=== PATIENT | female | born 1955 | race African-American/Black ===

== ENCOUNTER 2017-04-18 13:20 | Observation (INO) | payer OTHER ==
[~2017-04-18] VITALS: Ht 167.6 cm; Wt 102.5 kg
[2017-04-18 15:10] LABS: BASOPHILS % 0.6 % (0.0-2.0); EOSINOPHILS % 0.7 % (0.0-5.0); HEMOGLOBIN. 14.2 g/dL (12.0-16.0); LYMPHOCYTES % 15.7 % (20.0-50.0); MEAN CORPUSCULAR HEMOGLOBIN 30.4 pg (28.0-32.0); MEAN PLATELET VOLUME 8.3 fl (7.4-10.4); MONOCYTES % 4.1 % (2.0-8.0); NEUTROPHILS % 78.9 % (40.0-76.0); PLATELET 344 x1000/uL (130-400); RED BLOOD CELL COUNT 4.68 mill/uL (4.2-5.4); RED CELL DISTRIBUTION WIDTH 14.5 % (11.6-14.6)
[2017-04-18 15:16] LABS: BG BASE EXCESS -6.4 mmol/L (-2.0-2.0); BG CARBOXYHEMOGLOBIN 0.7 % (0.5-1.5); BG DEOXYHEMOGLOBIN 3.1 % (0.0-5.0); BG FRACTION INSPIRED OXYGEN 21; BG METHEMOGLOBIN 0.1 % (0.0-1.5); BG OXYGEN SATURATION 96.9 % (92.0-98.5); BG OXYHEMOGLOBIN 96.1 % (94.0-97.0); BG PCO2 21.4 mmHg (35.0-45.0); BG PH 7.463 (7.350-7.450); BG PO2 90.3 mmHg (75.0-100.0); BG SAMPLE SITE RIGHT BRACHIAL; BG TOTAL HEMOGLOBIN 14.4 g/dL (12.0-18.0); BG VENT MODE ROOM AIR
[2017-04-18 15:21] LABS: CARBON DIOXIDE 19 mEq/L (21-32); CHLORIDE 114 mEq/L (98-107)
[2017-04-18 15:25] LABS: ETHANOL BLOOD < 10 mg/dL
[2017-04-18 15:27] LABS: TROPONIN I < 0.02 ng/mL (0.00-0.04)
[2017-04-18] MEDS ORDERED: LORAZEPAM 2MG/ML CPJ IV ONE (15:30)
[2017-04-18] MEDS ORDERED: ONDANSETRON HCL 4MG/2ML VIAL IV ONE (16:45)
[2017-04-18] MEDS ORDERED: KETOROLAC 30MG/ML VIAL IV ONE (16:45)
[2017-04-18] MEDS ORDERED: ACETAMINOPHEN 325MG TABLET PO ONE (18:00)
[2017-04-19] VITALS (8 sets, daily range): BP systolic 101–119; BP diastolic 59–76
[2017-04-19] MEDS ORDERED: ATEN-42 PO (01:31)
[2017-04-19] MEDS ORDERED: HYDR-2510 PO (01:31)
[2017-04-19] MEDS ORDERED: ACET-3161 PO (01:31)
[2017-04-19] MEDS ORDERED: HYDROCODONE/ACETAMINOPHEN 5/325MG TABLET PO PRN (01:45)
[2017-04-19] MEDS ORDERED: ACETAMINOPHEN 325MG TABLET PO PRN (01:45)
[2017-04-19 06:37] LABS: BASOPHILS % 0.5 % (0.0-2.0); EOSINOPHILS % 1.1 % (0.0-5.0); HEMATOCRIT. 40.8 % (36.0-48.0); HEMOGLOBIN. 13.6 g/dL (12.0-16.0); LYMPHOCYTES % 29.6 % (20.0-50.0); MEAN CORPUSCULAR HEMOGLOBIN 30.9 pg (28.0-32.0); MEAN CORPUSCULAR VOLUME 92.3 fL (81.0-99.0); MEAN PLATELET VOLUME 8.4 fl (7.4-10.4); MONOCYTES % 5.9 % (2.0-8.0); NEUTROPHILS % 62.9 % (40.0-76.0); PLATELET 333 x1000/uL (130-400); RED BLOOD CELL COUNT 4.42 mill/uL (4.2-5.4); RED CELL DISTRIBUTION WIDTH 14.4 % (11.6-14.6)
[2017-04-19] MEDS ORDERED: ATENOLOL 25MG TABLET PO SCH (09:00)
[2017-04-19] MEDS ORDERED: HYDROCHLOROTHIAZIDE 50MG TABLET PO SCH (09:00)
[2017-04-19] MEDS ORDERED: INSULIN LISPRO 100 UNITS/ML SUBCUT NR (22:15)
== END 2017-04-19 22:30 | disposition short-term general hospital (02) ==
LOC: ER 13:35 → INTOOBSV 16:57 → 7WST 16:57
PROVIDERS: ADMIT Hospitalist; ATTEND Hospitalist
DX: I95.9 Hypotension, unspecified (principal); E11.9 Type 2 diabetes mellitus without complications; I10 Essential (primary) hypertension; F41.9 Anxiety disorder, unspecified; R19.7 Diarrhea, unspecified; N17.9 Acute kidney failure, unspecified
CPT/HCPCS: 36415; 36600; 70450; 71010; 80048; 80053; 82375; 82805; 82962; 84484; 85025; 96372; 96374; 96375; 99285; G0378; G0482; J1815; J1885; J2060; J2405

== ENCOUNTER 2023-06-24 07:10 | Emergency (ER) | payer OTHER ==
[~2023-06-24] VITALS: Ht 165.1 cm; Wt 114.0 kg
[~2023-06-24 07:10] MED LIST: ACET-3161 PO; ATEN-42 PO; HYDR50TA PO
[2023-06-24 07:21] VITALS: O2SAT 100
[2023-06-24] MEDS ORDERED: MAGNESIUM/ALUMINUM HYDROXIDE/SIMETHICONE 30ML UDC PO ONE (07:30)
[2023-06-24] MEDS ORDERED: METOCLOPRAMIDE HCL 5MG TABLET PO ONE (09:45)
[2023-06-24] MEDS ORDERED: LORAZEPAM 0.5MG TABLET PO ONE (09:45)
[2023-06-24] MEDS ORDERED: ATENOLOL 50 MG TABLET PO ONE (09:45)
[2023-06-24] MEDS ORDERED: ACETAMINOPHEN 325MG TABLET PO ONE (09:45)
[2023-06-24 11:51] LABS: BASOPHILS % 0.5 % (0.0-2.0); EOSINOPHILS % 1.5 % (0.0-5.0); HEMATOCRIT. 42.6 % (36.0-48.0); HEMOGLOBIN. 14.3 g/dL (12.0-16.0); LYMPHOCYTES % 24.8 % (20.0-50.0); MEAN CORPUSCULAR HEMOGLOBIN 32.1 pg (28.0-32.0); MEAN CORPUSCULAR VOLUME 95.9 fL (81.0-99.0); MEAN PLATELET VOLUME 8.6 fl (7.4-10.4); MONOCYTES % 6.6 % (2.0-8.0); NEUTROPHILS % 66.6 % (40.0-76.0); PLATELET 248 x1000/uL (130-400); RED BLOOD CELL COUNT 4.45 mill/uL (4.2-5.4); RED CELL DISTRIBUTION WIDTH 15.2 % (11.6-14.6)
[2023-06-24 12:00] LABS: CHLORIDE 116 mEq/L (98-107)
[2023-06-24 12:07] LABS: ETHANOL BLOOD < 10 mg/dL (-10)
[2023-06-24] MEDS ORDERED: PANTOPRAZOLE SODIUM 40 MG/VIAL IV NR (13:00)
[2023-06-24] MEDS ORDERED: SODIUM CHLORIDE 0.9% 1,000 ML IV NR ×2 (13:00)
[2023-06-24] MEDS ORDERED: HYDRALAZINE 20MG/ML VIAL IV NR (15:15)
[2023-06-24] MEDS ORDERED: MORPHINE SULFATE 4 MG/ML CPJ (NOT FOR IM USE) IV NR (15:15)
[2023-06-24 19:33] VITALS: BP 154/87; PULSE 90; RESP 20; TEMP 97.6
[2023-06-25] MEDS ORDERED: DEXTROSE 50% WATER 50ML SYRINGE IV PRN (11:00)
[2023-06-25] MEDS ORDERED: IPRATROPIUM/ALBUTEROL 0.5-3(2.5)MG/3ML NEB HHN PRN (11:00)
[2023-06-25] MEDS ORDERED: DIPHENHYDRAMINE 50MG/ML VIAL IV PRN (11:00)
[2023-06-25] MEDS ORDERED: CLONIDINE 0.1MG TABLET PO PRN (11:00)
[2023-06-25] MEDS ORDERED: ACETAMINOPHEN 325MG TABLET PO PRN ×2 (11:00)
[2023-06-25] MEDS ORDERED: ONDANSETRON HCL 4MG/2ML INJ IV PRN (11:00)
[2023-06-25] MEDS ORDERED: DOCUSATE SODIUM 100MG CAPSULE PO PRN (11:00)
[2023-06-25] MEDS ORDERED: AMLODIPINE 5MG TABLET PO SCH (11:23)
[2023-06-25] MEDS ORDERED: SODIUM CHLORIDE 0.9% 1,000 ML IV SCH (11:24)
[2023-06-25] MEDS ORDERED: METHYLPREDNISOLONE SOD SUCC 40MG/ML (ACT-O-VIAL) IV NR (11:30)
[2023-06-25] MEDS ORDERED: BLOOD SUGAR DIAGNOSTIC STRIP TEST SCH (13:00)
[2023-06-25] MEDS ORDERED: INSULIN LISPRO 100 UNITS/ML SUBCUT SCH (13:20)
[2023-06-25] MEDS ORDERED: FAMOTIDINE 20MG/2ML VIAL IV SCH (21:00)
[2023-06-25] MEDS ORDERED: METHYLPREDNISOLONE SOD SUCC 40MG VIAL IV SCH (21:00)
== END 2023-06-24 19:55 | disposition short-term general hospital (02) ==
LOC: ER 07:26 → EDBEDREQ 17:34 → EDBEDREQTM 17:34 → EDBEDREQSVC 17:34 → CANBEDREQ 18:26 → ER 19:55
DX: R10.13 Epigastric pain (principal); E87.20 Acidosis, unspecified; I10 Essential (primary) hypertension; F41.9 Anxiety disorder, unspecified; E11.9 Type 2 diabetes mellitus without complications; Z88.0 Allergy status to penicillin; Z20.822 Contact with and (suspected) exposure to COVID-19
CPT/HCPCS: 80053; 80320; 82962; 83880; 83605; 83690; 85025; 84484; 36415; 71045; 74176; 93005; 96374; 96375; 99285; 87426; J8597; J0360; C9113; J2270; C9803; Z7610 ×3; C1893; G0480

== ENCOUNTER 2024-11-05 16:41 | Inpatient (IN) | payer OTHER, MEDICARE ==
[~2024-11-05] VITALS: Ht 167.6 cm; Wt 112.0 kg
[2024-11-05 20:44] LABS: CHLORIDE 96 mEq/L (98-107); POTASSIUM 4.3 mEq/L (3.5-5.1); SODIUM 127 mEq/L (136-145)
[2024-11-05 20:45] LABS: CALCIUM 9.6 mg/dL (8.7-10.4); CARBON DIOXIDE 17 mEq/L (21-32)
[2024-11-05 20:49] LABS: UREA NITROGEN BLOOD 11 mg/dL (9-23)
[2024-11-05 20:50] LABS: CREATININE 1.5 mg/dL (0.6-1.0); TROPONIN I HIGH SENSITIVITY 32 ng/L (3.0-34)
[2024-11-05 20:52] LABS: ACETAMINOPHEN 12 ug/mL (10-30); ALANINE AMINOTRANSFERASE 16 IU/L (10-49); ALBUMIN 4.4 g/dL (3.2-4.8); ASPARTATE AMINOTRANSFERASE 21 IU/L (<34); BILIRUBIN DIRECT 0.2 mg/dL (<=3.0); BILIRUBIN TOTAL 0.8 mg/dL (0.1-1.0); PROTEIN TOTAL 7.9 g/dL (6.0-8.3)
[2024-11-05 20:56] LABS: ETHANOL BLOOD < 10 mg/dL (<10)
[2024-11-05 21:05] LABS: GLUCOSE 603 mg/dL (70-105)
[2024-11-05] MEDS ORDERED: INSULIN REGULAR (HUMULIN R) 1000UNITS/10ML VIAL IV ONE (21:30)
[2024-11-05] MEDS ORDERED: POTASSIUM CHLORIDE 40 MEQ in SODIUM CHLORIDE 0.9% 230 ML IV PRN ×2 (21:30→23:45)
[2024-11-05] MEDS ORDERED: INSULIN REGULAR (DRIP) 100 UNITS in SODIUM CHLORIDE 0.9% 99 ML IV SCH (21:30)
[2024-11-05] MEDS ORDERED: BLOOD SUGAR DIAGNOSTIC STRIP TEST PRN ×2 (21:30→23:45)
[2024-11-05] MEDS: INSULIN REGULAR (HUMULIN R) 1000UNITS/10ML VIAL IV NR (21:30)
[2024-11-05] MEDS ORDERED: MAGNESIUM 2 G PREMIX 50 ML IV PRN ×2 (21:30→23:45)
[2024-11-05] MEDS ORDERED: DEXTROSE 50% WATER 50ML SYRINGE IV PRN (21:30)
[2024-11-05] MEDS ORDERED: DEXT 5%/0.9% NACL 1,000 ML IV SCH (21:30)
[2024-11-05] MEDS ORDERED: KCL 20MEQ/100ML PREMIX 100 ML IV PRN ×2 (21:30→23:45)
[2024-11-05] MEDS: BLOOD SUGAR DIAGNOSTIC STRIP TEST SCH ×2 (21:30→23:45)
[2024-11-05] MEDS ORDERED: SODIUM PHOSPHATE 15 MMOL in SODIUM CHLORIDE 0.9% 245 ML IV PRN ×2 (21:30→23:45)
[2024-11-05] MEDS: SODIUM CHLORIDE 0.9% 1,000 ML IV SCH (21:30)
[2024-11-05] MEDS ORDERED: INSULIN REGULAR 100U/100ML PMX 100 ML IV SCH (22:00)
[2024-11-05] MEDS ORDERED: HYDRALAZINE 20MG/ML VIAL IV PRN (23:45)
[2024-11-05] MEDS ORDERED: SODIUM CHLORIDE 0.9% 1,000 ML IV PRN (23:45)
[2024-11-06 00:23] LABS: CHLORIDE 92 mEq/L (98-107); POTASSIUM 5.1 mEq/L (3.5-5.1); SODIUM 128 mEq/L (136-145)
[2024-11-06 00:24] LABS: CARBON DIOXIDE 21 mEq/L (21-32)
[2024-11-06 00:29] LABS: CREATININE 1.9 mg/dL (0.6-1.0); UREA NITROGEN BLOOD 17 mg/dL (9-23)
[2024-11-06 00:42] LABS: GLUCOSE 722 mg/dL (70-105)
[2024-11-06 00:45] LABS: BG BASE EXCESS -6.7 mmol/L (-2.0-3.0); BG CARBOXYHEMOGLOBIN 0.5 % (0.5-1.5); BG DEOXYHEMOGLOBIN 2.4 % (0.0-5.0); BG FRACTION INSPIRED OXYGEN 21; BG HCO3 ACT 15.6 mmol/L (21.0-28.0); BG METHEMOGLOBIN 0.3 % (0.5-1.5); BG OXYGEN SATURATION 97.6 % (94.0-98.0); BG OXYHEMOGLOBIN 96.8 % (94.0-98.0); BG PCO2 24.1 mmHg (32.0-45.0); BG PH 7.428 (7.350-7.450); BG PO2 92.4 mmHg (83.0-108.0); BG SAMPLE SITE LEFT RADIAL; BG VENT MODE ROOM AIR
[2024-11-06 00:49] LABS: HEMATOCRIT 47.8 % (36.0-48.0); HEMOGLOBIN 15.1 g/dL (12.0-16.0); MEAN CORPUSCULAR HGB CONC 31.6 g/dL (31.0-37.0); MEAN CORPUSCULAR VOLUME 91.6 fL (81.0-99.0); PLATELET 326 x1000/uL (130-400); RED BLOOD CELL COUNT 5.22 mill/uL (4.2-5.4); WHITE BLOOD COUNT 12.4 x1000/uL (4.5-11.0)
[2024-11-06] MEDS: MORPHINE SULFATE 2 MG/ML INJ (NOT FOR IM USE) IV PRN (01:14)
[2024-11-06] MEDS: ACETAMINOPHEN 325MG TABLET PO PRN (01:44)
[2024-11-06] MEDS: INSULIN REGULAR 100U/100ML PMX 100 ML IV SCH (02:13)
[2024-11-06] MEDS: ONDANSETRON HCL 4MG/2ML INJ IV PRN (03:49)
[2024-11-06] MEDS: PANTOPRAZOLE 40MG DR TABLET PO NR (03:49)
[2024-11-06] MEDS: DEXTROSE 50% WATER 50ML SYRINGE IV PRN (05:46)
[2024-11-06 05:50] LABS: BASOPHILS % 0.4 % (0.0-2.0); EOSINOPHILS % 0.9 % (0.0-5.0); HEMATOCRIT. 46.1 % (36.0-48.0); HEMOGLOBIN. 14.9 g/dL (12.0-16.0); LYMPHOCYTES % 23.4 % (20.0-50.0); MEAN CORPUSCULAR HEMOGLOBIN 28.9 pg (28.0-32.0); MEAN CORPUSCULAR HGB CONC 32.4 g/dL (31.0-37.0); MEAN CORPUSCULAR VOLUME 89.3 fL (81.0-99.0); MEAN PLATELET VOLUME 8.5 fl (7.4-10.4); MONOCYTES % 6.1 % (2.0-8.0); NEUTROPHILS % 69.2 % (40.0-76.0); PLATELET 349 x1000/uL (130-400); RED BLOOD CELL COUNT 5.17 mill/uL (4.2-5.4); RED CELL DISTRIBUTION WIDTH 15.5 % (11.6-14.6); WHITE BLOOD COUNT 14.3 x1000/uL (4.5-11.0)
[2024-11-06 06:05] LABS: CHLORIDE 103 mEq/L (98-107); POTASSIUM 3.5 mEq/L (3.5-5.1); SODIUM 138 mEq/L (136-145)
[2024-11-06 06:06] LABS: CALCIUM 10.1 mg/dL (8.7-10.4); CARBON DIOXIDE 22 mEq/L (21-32)
[2024-11-06 06:11] LABS: CREATININE 1.3 mg/dL (0.6-1.0); GLUCOSE 74 mg/dL (70-105); UREA NITROGEN BLOOD 16 mg/dL (9-23)
[2024-11-06] MEDS: DEXT 5%/0.9% NACL 1,000 ML IV PRN (06:11)
[2024-11-06 06:13] LABS: PHOSPHORUS 1.8 mg/dL (2.5-4.9)
[2024-11-06 08:48] LABS: CHLORIDE 103 mEq/L (98-107); POTASSIUM 4.3 mEq/L (3.5-5.1); SODIUM 135 mEq/L (136-145)
[2024-11-06 08:49] LABS: CARBON DIOXIDE 23 mEq/L (21-32)
[2024-11-06 09:19] LABS: BG BASE EXCESS -1.6 mmol/L (-2.0-3.0); BG CARBOXYHEMOGLOBIN 0.7 % (0.5-1.5); BG DEOXYHEMOGLOBIN 3.4 % (0.0-5.0); BG FRACTION INSPIRED OXYGEN 21; BG HCO3 ACT 21.2 mmol/L (21.0-28.0); BG METHEMOGLOBIN 0.3 % (0.5-1.5); BG OXYGEN SATURATION 96.6 % (94.0-98.0); BG OXYHEMOGLOBIN 95.6 % (94.0-98.0); BG PCO2 30.9 mmHg (32.0-45.0); BG PH 7.455 (7.350-7.450); BG PO2 80.4 mmHg (83.0-108.0); BG SAMPLE SITE RIGHT BRACHIAL; BG TOTAL HEMOGLOBIN 14.1 g/dL (12.0-16.0); BG VENT MODE VENT - AC
[2024-11-06] MEDS ORDERED: DEXTROSE 50% WATER 50ML SYRINGE IV PRN (11:30)
[2024-11-06] MEDS: INSULIN GLARGINE 100 UNITS/ML SUBCUT SCH (12:03)
[2024-11-06] MEDS: HYDROCODONE/ACETAMINOPHEN 5/325MG TABLET PO PRN (12:59)
[2024-11-06] MEDS: BLOOD SUGAR DIAGNOSTIC STRIP TEST SCH (14:11)
[2024-11-06] MEDS: INSULIN LISPRO 100 UNITS/ML SUBCUT SCH (14:27)
[2024-11-06 17:20] VITALS: BP 158/56; PULSE 89; RESP 20; TEMP 37.00296; O2SAT 100
[2024-11-06 17:25] VITALS: BP 142/90; PULSE 80; RESP 16; TEMP 37.0852
[2024-11-06 20:00] VITALS: BP 138/61; PULSE 103; RESP 18; TEMP 36.9474; O2SAT 100
[2024-11-06] MEDS ORDERED: PNEUMOCOCCAL 20-VAL CONJ-DIP CRM 0.5ML IM ONE (22:45)
[2024-11-07] VITALS: BP 163/73; PULSE 78; RESP 18; TEMP 36.61404; O2SAT 99
[2024-11-07 04:00] VITALS: BP 199/93; PULSE 79; RESP 18; TEMP 36.6696; O2SAT 100
[2024-11-07] MEDS: HYDRALAZINE 10 MG in SODIUM CHLORIDE 0.9% 49.5 ML IV PRN (05:23)
[2024-11-07 08:00] VITALS: BP 169/77; PULSE 80; RESP 20; TEMP 36.6696; O2SAT 99
[2024-11-07] MEDS ORDERED: LORA-250 MT (10:52)
[2024-11-07] MEDS ORDERED: GABA-529 MT (10:52)
[2024-11-07] MEDS ORDERED: ATEN50TA MT (10:52)
[2024-11-07 11:42] LABS: HEPATITIS B SURFACE ANTIGEN NEGATIVE (Negative)
[2024-11-07] MEDS: SUMATRIPTAN SUCCINATE 6MG/0.5ML VIAL SUBCUT NR (11:51)
[2024-11-07 12:00] VITALS: BP 140/76; PULSE 94; RESP 18; TEMP 36.72516; O2SAT 99
[2024-11-07 12:04] LABS: HEPATITIS C AB NON REACTIVE (Neg) (Negative)
[2024-11-07] MEDS: INSULIN LISPRO 100 UNITS/ML SUBCUT NR (12:31)
[2024-11-07] MEDS: INSULIN LISPRO 100 UNITS/ML SUBCUT SCH (12:31)
[2024-11-07 16:00] VITALS: BP 132/68; PULSE 96; RESP 18; TEMP 36.44736; O2SAT 97
[2024-11-07 20:00] VITALS: BP 149/79; PULSE 78; RESP 18; TEMP 35.61396; O2SAT 98
[2024-11-07] MEDS: INSULIN GLARGINE 100 UNITS/ML SUBCUT SCH (21:10)
[2024-11-07 22:31] LABS: CALCIUM 9.1 mg/dL (8.7-10.4)
[2024-11-07 22:35] LABS: CREATININE 1.2 mg/dL (0.6-1.0)
[2024-11-08] MEDS: LORAZEPAM 0.5MG TABLET PO PRN (00:29)
[2024-11-08 04:00] VITALS: BP 133/60; PULSE 87; RESP 18; TEMP 36.44736; O2SAT 97
[2024-11-08 08:00] VITALS: BP 181/93; PULSE 82; RESP 21; TEMP 37.05852; O2SAT 99
[2024-11-08] MEDS ORDERED: HYDR50TA PO (11:39)
[2024-11-08] MEDS ORDERED: ATEN50TA MT (11:39)
[2024-11-08] MEDS ORDERED: GABA-529 MT (11:39)
[2024-11-08] MEDS ORDERED: INSU100I13 SQ (11:42)
[2024-11-08] MEDS ORDERED: INSU100I28 SQ (11:42)
[2024-11-08 12:00] VITALS: BP 166/78; PULSE 91; RESP 20; TEMP 36.89184; O2SAT 99
[2024-11-08] MEDS ORDERED: NALOXONE HCL 0.4MG/ML VIAL IV PRN (13:30)
[2024-11-08 13:36] VITALS: BP 166/78; PULSE 88; TEMP 98.3; O2SAT 99
[2024-11-08] MEDS ORDERED: HYDROCODONE/ACETAMINOPHEN 5/325MG TABLET PO PRN (14:35)
[2024-11-08 16:00] VITALS: BP 157/69; PULSE 90; RESP 20; TEMP 35.72508; O2SAT 98
[2024-11-08 20:21] VITALS: BP 141/63; PULSE 96; RESP 19; TEMP 36.44736
[2024-11-08] MEDS: INSULIN GLARGINE 100 UNITS/ML SUBCUT SCH (21:32)
[2024-11-09 00:27] VITALS: BP 157/76; PULSE 84; RESP 20; TEMP 36.6696; O2SAT 98
[2024-11-09 04:20] VITALS: PULSE 87; RESP 19; TEMP 36.50292; O2SAT 96
== END 2024-11-09 11:54 | disposition home or self-care (01) | DRG 639 ==
LOC: ER 16:41 → 6EST 11-06 00:47 → EDBEDREQ 11-06 01:22 → EDBEDREQTM 11-06 01:26 → EDBEDREQSVC 11-06 15:50
PROVIDERS: ADMIT Internal Medicine; ATTEND Internal Medicine
DX: E11.10 Type 2 diabetes mellitus with ketoacidosis without coma (principal); F41.9 Anxiety disorder, unspecified; I11.0 Hypertensive heart disease with heart failure; J44.9 Chronic obstructive pulmonary disease, unspecified; L97.529 Non-pressure chronic ulcer of other part of left foot with unspecified severity; G43.909 Migraine, unspecified, not intractable, without status migrainosus; I50.9 Heart failure, unspecified; G89.29 Other chronic pain; Z88.0 Allergy status to penicillin; Z88.6 Allergy status to analgesic agent; Z88.8 Allergy status to other drugs, medicaments and biological substances
CPT/HCPCS: 36415; 36600; 80048; 80051; 80076; 80307; 80320; 80329; 82375; 82805; 82962; 83735; 83880; 83930; 84100; 84484; 85025; 85027; 86705; 87340; 99285; J0360; J1815; J2270; J2405; J3030; J7030; J7042; G0480

== ENCOUNTER 2024-11-11 00:34 | Inpatient (IN) | payer OTHER, MEDICARE ==
[~2024-11-11] VITALS: Ht 167.6 cm; Wt 113.9 kg
[~2024-11-11 00:34] MED LIST changes: -ACET-3161 PO; -ATEN-42 PO; +ATEN50TA MT; +GABA-529 MT; +INSU100I13 SQ; +INSU100I28 SQ; +LORA-250 MT
[2024-11-11] MEDS ORDERED: ACETAMINOPHEN 325MG TABLET PO ONE (03:30)
[2024-11-11 07:48] LABS: CLARITY URINE CLEAR (CLEAR); COLOR URINE YELLOW (YELLOW); GLUCOSE URINE NEGATIVE (NEGATIVE); KETONES URINE NEGATIVE (NEGATIVE); LEUKOCYTE ESTERASE URINE TRACE (NEGATIVE); NITRITE URINE NEGATIVE (NEGATIVE); OCCULT BLOOD URINE NEGATIVE (NEGATIVE); PH URINE 5.5 (4.5-8.0); PROTEIN URINE NEGATIVE (NEGATIVE); SPECIFIC GRAVITY URINE 1.017 (1.005-1.030); UROBILINOGEN URINE 0.2 E.U./dL (0.2-1.0)
[2024-11-11 07:58] LABS: *AMPHETAMINES SCREEN URINE NEGATIVE (NEGATIVE); *BARBITURATES SCREEN URINE NEGATIVE (NEGATIVE); *BENZODIAZEPINES SCREEN URINE NEGATIVE (NEGATIVE); *COCAINE SCREEN URINE NEGATIVE (NEGATIVE); METHADONE URINE SCREEN NEGATIVE (NEGATIVE); OPIATES URINE SCREEN PRESUMPTIVE POSITIVE (NEGATIVE)
[2024-11-11 07:59] LABS: CANNABINOID URINE SCREEN NEGATIVE (NEGATIVE); ECSTASY MDMA SCREEN URINE NEGATIVE (NEGATIVE); PHENCYCLIDINE URINE SCREEN NEGATIVE (NEGATIVE)
[2024-11-11 08:35] LABS: SQUAMOUS EPITHELIAL CELL URINE 2+ /lpf (RARE/1+)
[2024-11-11 08:36] LABS: BACTERIA URINE 2+
[2024-11-11 08:37] LABS: RBC URINE NONE SEEN /hpf (0-2); WBC URINE 0-2 /hpf (0-2)
[2024-11-11] MEDS: ACETAMINOPHEN 325MG TABLET PO NR (10:15)
[2024-11-11 11:12] LABS: BASOPHILS % 0.6 % (0.0-2.0); EOSINOPHILS % 2.3 % (0.0-5.0); HEMATOCRIT. 45.6 % (36.0-48.0); HEMOGLOBIN. 14.6 g/dL (12.0-16.0); MEAN CORPUSCULAR HEMOGLOBIN 29.2 pg (28.0-32.0); MEAN CORPUSCULAR VOLUME 91.2 fL (81.0-99.0); MEAN PLATELET VOLUME 9.8 fl (7.4-10.4); MONOCYTES % 5.3 % (2.0-8.0); NEUTROPHILS % 68.8 % (40.0-76.0); PLATELET 370 x1000/uL (130-400); RED CELL DISTRIBUTION WIDTH 16.2 % (11.6-14.6); WHITE BLOOD COUNT 12.4 x1000/uL (4.5-11.0)
[2024-11-11] MEDS ORDERED: IPRATROPIUM/ALBUTEROL 0.5-3(2.5)MG/3ML NEB HHN PRN (11:15)
[2024-11-11] MEDS ORDERED: CLONIDINE 0.1MG TABLET PO PRN (11:15)
[2024-11-11] MEDS ORDERED: DEXTROSE 50% WATER 50ML SYRINGE IV PRN (11:15)
[2024-11-11] MEDS ORDERED: DOCUSATE SODIUM 100MG CAPSULE PO PRN (11:15)
[2024-11-11] MEDS ORDERED: ONDANSETRON HCL 4MG/2ML INJ IV PRN (11:15)
[2024-11-11] MEDS ORDERED: ACETAMINOPHEN 325MG TABLET PO PRN (11:15)
[2024-11-11] MEDS ORDERED: MAGNESIUM/ALUMINUM HYDROXIDE/SIMETHICONE 30ML UDC PO PRN (11:15)
[2024-11-11] MEDS ORDERED: GUAIFENESIN 200MG/10ML SUGAR FREE UDC PO PRN (11:15)
[2024-11-11 12:00] VITALS: BP 159/78; PULSE 70; RESP 16; TEMP 36.6696; O2SAT 98
[2024-11-11] MEDS: GABAPENTIN 100MG CAPSULE PO SCH (12:11)
[2024-11-11] MEDS: BLOOD SUGAR DIAGNOSTIC STRIP TEST SCH (12:39)
[2024-11-11] MEDS ORDERED: NPH,100V SUBCUT (13:07)
[2024-11-11] MEDS ORDERED: HYDR-4009 PO (13:07)
[2024-11-11] MEDS ORDERED: DABI150C PO (13:07)
[2024-11-11] MEDS ORDERED: INSU100I95 SUBCUT (13:07)
[2024-11-11] MEDS: INSULIN LISPRO 100 UNITS/ML SUBCUT SCH (13:30)
[2024-11-11] MEDS: ENOXAPARIN 40MG/0.4ML SYR SUBCUT SCH (13:33)
[2024-11-11] MEDS: HYDROCHLOROTHIAZIDE 25MG TABLET PO SCH (13:34)
[2024-11-11] MEDS: SUMATRIPTAN SUCCINATE 25MG TABLET PO NR (14:43)
[2024-11-11 16:00] VITALS: BP 134/68; PULSE 69; RESP 16; TEMP 36.78072; O2SAT 97
[2024-11-11] MEDS: HYDROCODONE/ACETAMINOPHEN 5/325MG TABLET PO PRN (17:02)
[2024-11-11 20:00] VITALS: BP 102/60; PULSE 94; RESP 18; TEMP 36.44736; O2SAT 99
[2024-11-11 22:18] LABS: CHLORIDE 105 mEq/L (98-107); POTASSIUM 3.9 mEq/L (3.5-5.1); SODIUM 136 mEq/L (136-145)
[2024-11-11 22:19] LABS: CALCIUM 9.1 mg/dL (8.7-10.4); CARBON DIOXIDE 21 mEq/L (21-32)
[2024-11-11 22:24] LABS: CREATININE 1.1 mg/dL (0.6-1.0); GLUCOSE 235 mg/dL (70-105); TRIGLYCERIDE 146 mg/dL (0-150)
[2024-11-11 22:25] LABS: LDL CHOLESTEROL 61 mg/dL (5-100); TROPONIN I HIGH SENSITIVITY 13 ng/L (3.0-34); UREA NITROGEN BLOOD 12 mg/dL (9-23)
[2024-11-11 22:26] LABS: CHOLESTEROL 142 mg/dL (<200)
[2024-11-11 22:27] LABS: HDL CHOLESTEROL 51 mg/dL (>65)
[2024-11-11 22:31] LABS: ETHANOL BLOOD < 10 mg/dL (<10)
[2024-11-11 22:34] LABS: VITAMIN B12 SERUM 752 pg/mL (211-911)
[2024-11-12] MEDS: INSULIN GLARGINE 100 UNITS/ML SUBCUT SCH ×2 (01:22→22:06)
[2024-11-12] MEDS ORDERED: KETOROLAC 30MG/ML VIAL IV ONE (02:45)
[2024-11-12] MEDS: MORPHINE SULFATE 2 MG/ML INJ (NOT FOR IM USE) IV NR (03:15)
[2024-11-12 04:00] VITALS: BP 134/87; PULSE 96; RESP 18; TEMP 36.61404; O2SAT 98
[2024-11-12 07:31] LABS: POTASSIUM 4.4 mEq/L (3.5-5.1)
[2024-11-12 07:32] LABS: CALCIUM 9.4 mg/dL (8.7-10.4)
[2024-11-12 07:37] LABS: CREATININE 1.1 mg/dL (0.6-1.0)
[2024-11-12 08:00] VITALS: BP 146/93; PULSE 92; RESP 17; TEMP 36.55848; O2SAT 100
[2024-11-12] MEDS ORDERED: DEXTROSE 50% WATER 50ML SYRINGE IV PRN (08:15)
[2024-11-12 08:33] LABS: BASOPHILS % 0.5 % (0.0-2.0); EOSINOPHILS % 1.1 % (0.0-5.0); HEMOGLOBIN. 14.9 g/dL (12.0-16.0); MEAN CORPUSCULAR HEMOGLOBIN 29.9 pg (28.0-32.0); MEAN CORPUSCULAR HGB CONC 33.2 g/dL (31.0-37.0); MEAN CORPUSCULAR VOLUME 89.8 fL (81.0-99.0); MEAN PLATELET VOLUME 8.9 fl (7.4-10.4); MONOCYTES % 5.5 % (2.0-8.0); NEUTROPHILS % 68.9 % (40.0-76.0); PLATELET 327 x1000/uL (130-400); RED BLOOD CELL COUNT 5.01 mill/uL (4.2-5.4); RED CELL DISTRIBUTION WIDTH 15.9 % (11.6-14.6); WHITE BLOOD COUNT 10.4 x1000/uL (4.5-11.0)
[2024-11-12] MEDS: ATENOLOL 50 MG TABLET PO SCH (09:12)
[2024-11-12 16:00] VITALS: BP 128/86; PULSE 70; RESP 18; TEMP 36.50292; O2SAT 97
[2024-11-12 20:00] VITALS: BP 127/72; PULSE 60; RESP 19; TEMP 36.33624; O2SAT 97
[2024-11-12 23:15] VITALS: BP 127/72; PULSE 60; RESP 19; TEMP 36.3624
[2024-11-13] VITALS: BP 142/64; PULSE 66; RESP 20; TEMP 35.72508; O2SAT 98
[2024-11-13 04:00] VITALS: BP 158/84; PULSE 79; RESP 18; TEMP 36.28068; O2SAT 96
[2024-11-13] MEDS ORDERED: NALOXONE HCL 0.4MG/ML VIAL IV PRN (06:30)
[2024-11-13 08:00] VITALS: BP 157/56; PULSE 65; RESP 20; TEMP 36.72516; O2SAT 100
[2024-11-13] MEDS: INSULIN LISPRO 100 UNITS/ML SUBCUT NR (09:49)
[2024-11-13] MEDS: INSULIN LISPRO 100 UNITS/ML SUBCUT SCH (09:52)
[2024-11-13] MEDS ORDERED: INSULIN GLARGINE 100 UNITS/ML SUBCUT SCH (10:00)
[2024-11-13 11:41] VITALS: BP 149/70; PULSE 67; RESP 19; TEMP 36.61404; O2SAT 95
[2024-11-13 12:55] LABS: CHLORIDE 103 mEq/L (98-107); POTASSIUM 3.8 mEq/L (3.5-5.1); SODIUM 135 mEq/L (136-145)
[2024-11-13 12:56] LABS: CALCIUM 9.5 mg/dL (8.7-10.4); CARBON DIOXIDE 22 mEq/L (21-32)
[2024-11-13 13:01] LABS: CREATININE 1.1 mg/dL (0.6-1.0); GLUCOSE 271 mg/dL (70-105); UREA NITROGEN BLOOD 19 mg/dL (9-23)
[2024-11-13 13:03] LABS: ALANINE AMINOTRANSFERASE 9 IU/L (10-49); ASPARTATE AMINOTRANSFERASE 12 IU/L (<34); BILIRUBIN TOTAL 0.4 mg/dL (0.1-1.0); PROTEIN TOTAL 7.3 g/dL (6.0-8.3)
[2024-11-13 16:00] VITALS: BP 112/65; PULSE 60; RESP 20; TEMP 36.72516; O2SAT 97
[2024-11-13 16:19] VITALS: BP 149/70; PULSE 67; TEMP 97.9; O2SAT 93
[2024-11-13] MEDS ORDERED: AMLODIPINE 10MG TABLET PO SCH (17:30)
== END 2024-11-13 17:57 | disposition short-term general hospital (02) | DRG 103 ==
LOC: ER 00:34 → 5WST 06:08 → 6EST 11-13 00:47
PROVIDERS: ADMIT Internal Medicine; ATTEND Internal Medicine
DX: G43.909 Migraine, unspecified, not intractable, without status migrainosus (principal); L97.528 Non-pressure chronic ulcer of other part of left foot with other specified severity; G89.29 Other chronic pain; I11.0 Hypertensive heart disease with heart failure; D72.829 Elevated white blood cell count, unspecified; I50.9 Heart failure, unspecified; E11.621 Type 2 diabetes mellitus with foot ulcer; F41.9 Anxiety disorder, unspecified; Z79.4 Long term (current) use of insulin; Z99.3 Dependence on wheelchair; Z79.891 Long term (current) use of opiate analgesic; Z79.899 Other long term (current) drug therapy; Z86.718 Personal history of other venous thrombosis and embolism; Z88.0 Allergy status to penicillin; Z88.6 Allergy status to analgesic agent; Z90.49 Acquired absence of other specified parts of digestive tract; Z88.8 Allergy status to other drugs, medicaments and biological substances
CPT/HCPCS: 36415; 71045; 80048; 80053; 80061; 80305; 80320; 81003; 82607; 82962; 83036; 83880; 84439; 84443; 84484; 85025; 93005; 93970; 97166; 99285; J1650; J1815; J2270; G0480